=== PATIENT | female | born 1980 | race Caucasian/White ===

== ENCOUNTER 2017-02-06 05:31 | Day surgery (SDC) | payer OTHER ==
[2017-02-02 09:36] LABS: HEMATOCRIT 40.3 % (36.0-47.0); HEMOGLOBIN 13.5 g/dL (12.0-15.5); HGB HCT DIFFERENCE 0.2; MEAN CORPUSCULAR HEMOGLOBIN 29.7 pg (27.0-33.4); MEAN CORPUSCULAR HGB CONC 33.6 g/dL (32.0-36.0); MEAN CORPUSCULAR VOLUME 89 fl (80-97); RED BLOOD COUNT 4.55 10^6/uL (3.72-5.28); RED CELL DISTRIBUTION WIDTH 13.5 % (11.5-14.0); WHITE BLOOD COUNT 7.6 10^3/uL (4.0-10.5)
[2017-02-02 09:43] LABS: APPEARANCE,URINE CLEAR; BILIRUBIN,URINE NEGATIVE (NEGATIVE); GLUCOSE, URINE NEGATIVE (NEGATIVE); KETONES,URINE NEGATIVE (NEGATIVE); LEUKOCYTE ESTERASE,URINE NEGATIVE (NEGATIVE); NITRITE,URINE NEGATIVE (NEGATIVE); PROTEIN,URINE NEGATIVE (NEGATIVE); URINE SPECIFIC GRAVITY 1.002; UROBILINOGEN,URINE NEGATIVE mg/dL (<2.0)
[2017-02-02 09:49] LABS: ALANINE AMINOTRANSFERASE 42 U/L (9-52); ALBUMIN 4.9 g/dL (3.5-5.0); ALKALINE PHOSPHATASE 43 U/L (38-126); ANION GAP 13 (5-19); ASPARTATE AMINO TRANSFERASE 34 U/L (14-36); BILIRUBIN,DIRECT 0.4 mg/dL (0.0-0.4); BILIRUBIN,TOTAL 1.3 mg/dL (0.2-1.3); BLOOD UREA NITROGEN 12 mg/dL (7-20); CALCIUM 10.1 mg/dL (8.4-10.2); CARBON DIOXIDE 28 mmol/L (22-30); CHLORIDE 99 mmol/L (98-107); CREATININE RESULT 0.73 mg/dL (0.52-1.25); GLUCOSE 81 mg/dL (75-110); POTASSIUM 5.1 mmol/L (3.6-5.0); SODIUM 139.7 mmol/L (137-145); TOTAL PROTEIN 8.1 g/dL (6.3-8.2)
[~2017-02-06 05:31] MED LIST: CLINDAMYCIN 900 MG/D5W RTU 50 ML IV PRN; GENTAMICIN SULFATE 120 MG in DEXTROSE 5%-WATER 100 ML IV PRN; RINGERS SOLUTION,LACTATED 1,000 ML IV PRN
[2017-02-06] MEDS ORDERED: FENTANYL CITRATE INJ/PF 250 MCG/5 ML AMPULE ONE (06:45)
[2017-02-06] MEDS ORDERED: PROPOFOL INJ 200 MG/20 ML VIAL IV ONE (06:46)
[2017-02-06] MEDS ORDERED: MIDAZOLAM 2 MG/2 ML INJ ONE (06:46)
[2017-02-06] MEDS ORDERED: IBUPROFEN INJ 800 MG/8 ML VIAL IV ONE (06:46)
[2017-02-06] MEDS ORDERED: HYDROMORPHONE HCL INJ/PF 2 MG/ML AMPULE ONE (06:46)
[2017-02-06] MEDS ORDERED: BUPIVACAINE HCL 0.25 % INJ/PF (2.5 MG/1 ML) 30 ML VIAL ONE (07:18)
[2017-02-06] MEDS ORDERED: SCOPOLAMINE HYDROBROMIDE 1.5 MG PATCH.TD72 ONE (07:31)
[2017-02-06] MEDS ORDERED: METHYLENE BLUE/PF INJ 100 MG/10 ML SDV ONE (09:48)
[2017-02-06] MEDS ORDERED: OXYCODONE-ACETAMINOPHEN 5-325 MG TABLET PO PRN ×2 (10:08)
[2017-02-06] MEDS ORDERED: MORPHINE SULFATE 10 MG/ML INJ IV PRN (10:08)
[2017-02-06] MEDS ORDERED: FENTANYL CITRATE INJ/PF 100 MCG/2 ML AMPUL IV PRN ×3 (10:08)
[2017-02-06] MEDS ORDERED: ONDANSETRON HCL INJ/PF 4 MG/2 ML SDV IV PRN (10:08)
[2017-02-06] MEDS ORDERED: MEPERIDINE HCL/PF INJ 25 MG/1 ML DISP.SYRIN IV PRN (10:08)
[2017-02-06] MEDS ORDERED: PROMETHAZINE HCL INJ 25 MG/1 ML VIAL IV PRN ×2 (10:08)
[2017-02-06] MEDS ORDERED: DIPHENHYDRAMINE HCL 50 MG/ML VIAL IV PRN (10:08)
[2017-02-06] MEDS ORDERED: ACETAMINOPHEN 100 ML IV ONE (10:35)
[2017-02-06] MEDS ORDERED: FENTANYL CITRATE INJ/PF 100 MCG/2 ML AMPUL ONE (10:46)
[2017-02-06] MEDS ORDERED: ONDANSETRON HCL INJ/PF 4 MG/2 ML SDV ONE ×2 (10:57→12:18)
[2017-02-06] MEDS ORDERED: HYDROMORPHONE HCL INJ/PF 2 MG/ML AMPULE IV PRN ×2 (11:26→11:27)
[2017-02-06] MEDS ORDERED: OXYCODONE HCL IR 5 MG TABLET PO PRN (11:29)
[2017-02-06] MEDS: ONDANSETRON HCL INJ/PF 4 MG/2 ML SDV IV PRN ×2 (12:05→20:09)
[2017-02-06] MEDS ORDERED: KETOROLAC TROMETHAMINE 60 MG/2 ML SDV ONE (12:18)
[2017-02-06] MEDS ORDERED: DEXAMETHASONE SOD PHOSPHATE INJ 4 MG/1 ML VIAL ONE (12:18)
[2017-02-06] MEDS ORDERED: SUCCINYLCHOLINE CHLORIDE INJ 200 MG/10 ML VIAL ONE (12:18)
[2017-02-06] MEDS ORDERED: METOCLOPRAMIDE HCL INJ/PF 10 MG/2 ML SDV ONE (12:18)
[2017-02-06] MEDS ORDERED: NEOSTIGMINE METHYLSULFATE 10 MG/10 ML VIAL ONE (12:18)
[2017-02-06] MEDS ORDERED: VECURONIUM BROMIDE INJ 10 MG VIAL IV ONE (12:18)
[2017-02-06] MEDS ORDERED: LIDOCAINE 2% INJ-PF (20 MG/ML) 10 ML AMPUL ONE (12:18)
[2017-02-06] MEDS ORDERED: GLYCOPYRROLATE INJ 0.4 MG/2 ML VIAL ONE (12:18)
--- NOTE | 2017-02-06 13:43 | OPERATIVE REPORT E ---
Operative Report NAME: KRISH GELLER : 1980 AGE: 36Y DATE OF SURGERY: 02/06/2017 ROOM: 223 PREOPERATIVE DIAGNOSES: Chronic pelvic pain and dyspareunia refractory to medical management. POSTOPERATIVE DIAGNOSES: Chronic pelvic pain and dyspareunia refractory to medical management. OPERATION PERFORMED: Robotic hysterectomy with right salpingo-oophorectomy, left salpingectomy, and cystoscopy. SURGEON: OBED STONE M.D. ANESTHESIA: General endotracheal. ESTIMATED BLOOD LOSS: 100 mL. FINDINGS: Uterus appeared boggy. There was a physiologic appearing cyst on the left ovary. The left tube looked normal. The right distal tube was slightly erythematous but no obvious lesions. The right ovary appeared normal. The appendix appeared normal. There was no obvious endometriosis on the peritoneum surface, however, the right round ligament was somewhat thickened. Cystoscopy showed normal bladder with patent ureters bilaterally. There were no stitches in the bladder and no cautery rojas visible. SPECIMENS TO PATHOLOGY: Uterus, bilateral tubes, and right ovary. DESCRIPTION OF PROCEDURE: After discussing risks, benefits, and alternatives of the procedure and obtaining informed consent, the patient was taken to the operating room where general anesthesia was achieved. She was positioned in the dorsal lithotomy position, prepped and draped in the usual standard fashion. Gross catheter was placed to keep the bladder drained. A speculum was placed in the vagina. The cervix was grasped with a single-tooth tenaculum. A stitch was placed on the anterior aspect of the cervix and the cervix was serially dilated to allow for placement of a VCare uterine manipulator. The VCare device was placed and sewn in place with a stitch. Attention was then turned to the patient's abdomen. An incision was made in the superior aspect of the umbilicus, approximately 8 mm in length. The fascia was grasped, elevated, and incised. The 8 mm robotic trocar was placed under direct visualization. The abdomen was insufflated and a 5 laparoscope placed. An 8 mm left lower quadrant robotic trocar was placed under direct visualization. All of the port sites were premedicated with 0.25% Marcaine with epinephrine. The pelvis was surveyed with the findings noted. A right lower quadrant 8 mm robotic trocar was placed and a 5 mm AirSeal was placed in the right upper quadrant under direct visualization. The robot was docked. After placing the camera, robotic scissors were placed for use in the surgeon's right hand. A fenestrated grasper was placed for use in the surgeon's left hand. The scissors were attached to monopolar cautery and the graspers attached to bipolar cautery. I then went to the operative console. The left ovarian cyst was drained by using monopolar scissors to create a small defect in it. This allowed for drainage of it and better visualization during the procedure. It drained some clear yellowish fluid. The left tube was undermined with bipolar in the mesosalpinx. It was then cut and transected near the uterus. It was handed to the bedside hardware sales assistant who removed it through the hardware sales assistant's port. Next, the round ligament was interrupted and the bladder flap initiated on the left. The utero-ovarian pedicle was created by creating a defect in the mesosalpinx inferior to the utero-ovarian vessels. The utero-ovarian vessels were then coagulated. The uterine arteries were skeletonized. They were coagulated but not cut. Attention was turned to the patient's right. The right round ligament was interrupted. During this process, oozing was noted. This was coagulated as meticulously as possible. The bladder flap was created. The tube and utero-ovarian vessel were coagulated and cut on the right. The uterine artery was skeletonized on the right. During this process, the right tube and ovary were initially left in situ. The uterine arteries were coagulated on the patient's right and cut. The posterior cul-de-sac was entered overlying the [employer] uterine manipulator with monopolar energy. This was carried out circumferentially. The uterus was delivered into the vagina. Next, attention was turned to the right tube and ovary. The distal fallopian tube was grasped by the bedside hardware sales assistant with graspers. The infundibulum pelvic vessels were coagulated immediately adjacent to the ovary and cut. The right salpingo-oophorectomy was performed in this fashion. The specimen was then passed through the vagina as well. The V-Loc stitch was passed up through the vagina through a trocar. The scissors has been replaced with a needle regional truck driver for use in the surgeon's right hand. I grasped the suture and the closed the cuff in a running fashion. This was carried back approximately half way across the cuff. The suture was cut with robotic scissors which had been replaced in the surgeon's right hand. The robotic scissors were removed from the right lower quadrant trocar. That arm was undocked and the bedside hardware sales assistant removed the needle and trocar through that site. Next, the pelvis was irrigated and surveyed under low pressure. It appeared to be hemostatic on the area around the right where there had been some oozing during the procedure. The decision was made to do cystoscopy and the patient was given Methylene blue. The Gross catheter was removed. Cystoscopy showed patent ureters with spill of urine bilaterally. Attention was then turned back to the abdomen which was again inspected under low pressure. The robot had been undocked during this process. The 5 mm laparoscope was used for surveillance at that point. After irrigation, FloSeal was applied to the cuff and right aspect of the peritoneum where the oozing had been noted intraoperatively to assure continued hemostasis. The trocars were then removed under direct visualization and the abdomen desufflated. The umbilical fascia site was closed with 0 Vicryl. The skin incisions were closed with 3-0 Monocryl in a subcuticular fashion. Dermabond was applied to all sites. The Gross catheter had been replaced after the cystoscopy and the patient was taken to recovery in stable condition. All sponge, needle, lap, and instrument counts were correct x2. DICTATING PHYSICIAN: OBED STONE M.D. [id number] PHY#: [id number] ID: [id number] JOB#: [id number] ACCT: [id number] cc:OBED STONE M.D. > MTDD
[2017-02-06] MEDS: CLINDAMYCIN 900 MG/D5W RTU 50 ML IV SCH ×2 (14:18→21:44)
[2017-02-06] MEDS: GENTAMICIN SULFATE 80 MG in DEXTROSE 5%-WATER 100 ML IV SCH ×2 (14:23→21:43)
[2017-02-06] MEDS: OXYCODONE HCL IR 5 MG TABLET PO PRN (17:34)
[2017-02-06] MEDS ORDERED: PROMETHAZINE HCL 25 MG TABLET PO PRN (20:20)
[2017-02-07] MEDS: OXYCODONE HCL IR 5 MG TABLET PO PRN (04:26)
[2017-02-07] MEDS ORDERED: OXYCODONE-ACETAMINOPHEN 5-325 MG TABLET PO PRN ×2 (06:01→06:02)
[2017-02-07 07:14] LABS: HEMOGLOBIN 10.1 g/dL (12.0-15.5); HGB HCT DIFFERENCE 1.3; MEAN CORPUSCULAR HEMOGLOBIN 30.2 pg (27.0-33.4); MEAN CORPUSCULAR HGB CONC 34.8 g/dL (32.0-36.0); MEAN CORPUSCULAR VOLUME 87 fl (80-97); RED BLOOD COUNT 3.34 10^6/uL (3.72-5.28); RED CELL DISTRIBUTION WIDTH 13.4 % (11.5-14.0); WHITE BLOOD COUNT 11.9 10^3/uL (4.0-10.5)
[2017-02-07 09:06] VITALS: BP 116/70
== END 2017-02-07 09:54 | disposition home or self-care (01) ==
LOC: OROUT 05:31 → 2S 11:39 → OROUT 02-07 09:54
PROVIDERS: ATTEND Specialist
PROC: 0UTC4ZZ Resection of Cervix, Percutaneous Endoscopic Approach (ICD-10-PCS; 2017-02-06)
PROC: 0UT04ZZ Resection of Right Ovary, Percutaneous Endoscopic Approach (ICD-10-PCS; 2017-02-06)
PROC: 0UT74ZZ Resection of Bilateral Fallopian Tubes, Percutaneous Endoscopic Approach (ICD-10-PCS; 2017-02-06)
PROC: 8E0W4CZ Robotic Assisted Procedure of Trunk Region, Percutaneous Endoscopic Approach (ICD-10-PCS; 2017-02-06)
PROC: 0UT94ZZ Resection of Uterus, Percutaneous Endoscopic Approach (ICD-10-PCS; principal; 2017-02-06 07:30)
DX: N87.0 Mild cervical dysplasia (principal); N83.8 Other noninflammatory disorders of ovary, fallopian tube and broad ligament; N72 Inflammatory disease of cervix uteri; N83.202 Unspecified ovarian cyst, left side; G89.29 Other chronic pain; R10.2 Pelvic and perineal pain; E07.9 Disorder of thyroid, unspecified; F17.210 Nicotine dependence, cigarettes, uncomplicated; Z79.899 Other long term (current) drug therapy; Z88.0 Allergy status to penicillin; Z88.2 Allergy status to sulfonamides
CPT/HCPCS: 58571; S2900; 36415; 80053; 81001; 81025; 840; 84132; 85027; 86850; 86900; 86901; 88307; J0131; J0330; J1100; J1170; J1580; J1741; J1885; J2250; J2405; J2704; J2765; J3010; J3490; J7120; Q9968